=== PATIENT | female | born 1945 | race Hispanic/Latino ===

== ENCOUNTER 2018-11-25 06:47 | Observation (INO) | payer OTHER ==
[2018-11-25 06:48] VITALS: BMI 23.3
--- NOTE | 2018-11-25 07:39 | ED PDOC ---
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 As per son, this started 1 month ago as a small bruise on left knee which progressively gotten worse with associated swelling, discoloration and pain with ambulation. Patient was seen by PMD, Doppler on 10/24: negative for an y acute changes and patient was started on Ciprofloxine 500mg BID a week ago. Patient doesnt recall any trauma but reports she is not as physically active as before and doesnt really ambulate much. Patient denies any fever, chills, SOB, chest pain or dizziness. 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 Huff PSH: IVC filter 2007 Allg: PNC and Aspirin SH: Denies alcohol, smoking or drug use FH: Denies any bleeding disorders ROS: As per HPI, <Dinah Martinez - Last Filed: 11/25/18 11:02> <Damion Hollingsworth - Last Filed: 11/25/18 11:33> Time Seen by Provider: 11/25/18 07:16 Chief Complaint (Nursing): Lower Extremity Problem/Injury Supervising Attending Note - Supervising Attending Note The Documented history was done by the: Physician Slackman The documented physical exam was done by the: Physician Slackman The documented procedures were done by the: Physician Slackman - Attestation: I have personally seen and examined this patient.: Yes I have fully participated in the care of the patient.: Yes I have reviewed all pertinent clinical information, including history, physical exam and plan: Yes - Notes: Notes:: 1130: Stable. Spoke with Dr. Huff. Will admit obs. Wants surgery afternoon nanny to consult. Pulses intact 2+. No sensory or motor deficits. <Damion Hollingsworth - Last Filed: 11/25/18 11:33> Past Medical History Vital Signs: Last Vital Signs Temp 97.3 F L 11/25/18 07:08 Pulse 93 H 11/25/18 07:08 Resp 18 11/25/18 07:08 BP 118/73 11/25/18 07:08 Pulse Ox 99 01/18/19 07:08 - Medical History PMH: Anxiety, Arthritis, Colonic Polyps, Deep Vein Thrombosis, Gastritis, HTN, Hyperthyroidism, Chronic Kidney Disease (solitary kidney) Denies: Pulmonary Embolism - Surgical History Surgical History: Endoscopy - Immunization History Hx Tetanus Toxoid Vaccination: No Hx Influenza Vaccination: No Hx Pneumococcal Vaccination: No <Dinah Martinez - Last Filed: 11/25/18 11:02> Reviewed: Nursing Documentation, Vital Signs Vital Signs: Last Vital Signs Temp 97.3 F L 11/25/18 07:08 Pulse 93 H 11/25/18 07:08 Resp 18 11/25/18 07:08 BP 118/73 11/25/18 07:08 Pulse Ox 99 11/25/18 11:07 - Family History Family History: States: Unknown Family Hx <HollingsworthDamion Gaivn - Last Filed: 11/25/18 11:33> - Home Medications Home Medications: Ambulatory Orders Medication Instructions Recorded Warfarin [Coumadin] 2.5 mg PO DAILY 10/16/14 diaZEpam [Valium] 5 mg PO DAILY 10/16/14 amLODIPine [Norvasc] 2.5 mg PO DAILY 01/02/15 Levothyroxine Sodium 50 mcg PO DAILY 09/20/18 [Levothyroxine] Azelastine HCl 1 drop EACHEYE Q12 11/25/18 Ciprofloxacin [Cipro] 500 mg PO BID 11/25/18 Omeprazole 40 mg PO DAILY 11/25/18 Timolol 0.5% Ophth [Timoptic 0.5% 1 drop BOTHEYES Q12 11/25/18 Ophth Soln] - Allergies Allergies/Adverse Reactions: Allergies Allergy/AdvReac Type Severity Reaction Status Date / Time aspirin Allergy RASH Verified 11/25/18 07:08 Penicillins Allergy RASH Verified 11/25/18 07:08 Review of Systems Constitutional: Negative for: Fever, Chills Cardiovascular: Negative for: Chest Pain, Palpitations Respiratory: Negative for: Cough, Shortness of Breath, Hemoptysis Gastrointestinal: Negative for: Nausea, Vomiting, Abdominal Pain Musculoskeletal: Positive for: Other (knee pain) Skin: Negative for: Rash Neurological: Negative for: Weakness, Numbness <Dinah Martinez - Last Filed: 11/25/18 11:02> Physical Exam - Physical Exam Appears: Positive for: No Acute Distress Eye Exam: Positive for: Normal appearance, EOMI ENT: Positive for: Normal ENT Inspection Neck: Positive for: Normal Cardiovascular/Chest: Positive for: Regular Rate, Rhythm. Negative for: JVD Respiratory: Positive for: Normal Breath Sounds. Negative for: Decreased Breath Sounds, Accessory Muscle Use, Crackles Pulses-Dorsalis Pedis (L): 2+ Pulses-Dorsalis Pedis (R): 2+ Pulses-Femoral (L): 2+ Pulses-Femoral (R): 2+ Pulses-Post. Tibialis (L): 2+ Pulses-Post. Tibialis (R): 2+ Gastrointestinal/Abdominal: Positive for: Normal Exam, Soft. Negative for: Tenderness Back: Positive for: Normal Inspection. Negative for: L CVA Tenderness, R CVA Tenderness Extremity: Positive for: Tenderness (left knee. jennifer sign negative, ROM intact on left ), Calf Tenderness (left ), Capillary Refill (normal), Swelling (+1 around left knee with blue/purple/blackskin discoloration at [place]ro-[place] and posterior L knee (Big hamartoma covering knee)), Other (Pain with only ambulation ) Neurologic/Psych: Positive for: Alert, Oriented <Dinah Martinez - Last Filed: 11/25/18 11:02> - Physical Exam Respiratory: Positive for: Normal Breath Sounds Extremity: Positive for: Tenderness (L calf) <Damion Hollingsworth - Last Filed: 11/25/18 11:33> - Laboratory Results Result Diagrams: 11/25/18 08:15 11/25/18 08:15 - ECG O2 Sat by Pulse Oximetry: 99 - Progress ED Course And Treament: A/P: 73 y/o F with PMH of HTN, CKD, anxiety, 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 - CBC, CMP, Coag - Type and screen - Trop and EKG - NS IVF - EKG - Left LE CT with Cont - Reevaluate patient Case discussed with Dr. Hollingsworth - EKG reviewed, no changes from prior EKG <Dinah Martinez - Last Filed: 11/25/18 11:02> - Laboratory Results Result Diagrams: 11/25/18 08:15 11/25/18 08:15 Lab Results: PT 15.7 Seconds (9.8-13.1) H 11/25/18 08:15 INR 1.4 11/25/18 08:15 APTT 31.3 Seconds (25.6-37.1) 11/25/18 08:15 Troponin I < 0.0120 ng/mL (0.00-0.120) 11/25/18 08:15 Total Bilirubin 0.6 mg/dl (0.2-1.3) 11/25/18 08:15 AST 25 U/L (14-36) 11/25/18 08:15 ALT 24 U/L (9-52) 11/25/18 08:15 Alkaline Phosphatase 57 U/L (38-126) 11/25/18 08:15 Total Protein 6.6 G/DL (6.3-8.2) 11/25/18 08:15 Albumin 3.5 g/dL (3.5-5.0) 11/25/18 08:15 Globulin 3.0 gm/dL (2.2-3.9) 11/25/18 08:15 Albumin/Globulin Ratio 1.2 (1.0-2.1) 11/25/18 08:15 - ECG Pulse Ox Interpretation: Normal <Damion Hollingsworth - Last Filed: 11/25/18 11:33> Disposition <Dinah Martinez - Last Filed: 11/25/18 11:02> - Patient ED Disposition Is Patient to be Admitted: Yes Counseled Patient/Family Regarding: Studies Performed, Diagnosis - Disposition Disposition Time: 11:32 - Pt Status Changed To: Hospital Disposition Of: Observation - POA Present On Arrival: Falls Or Trauma (possible) <Damion Hollingsworth - Last Filed: 11/25/18 11:33> - Clinical Impression Clinical Impression: Abnormal bruising, Anemia - Disposition Condition: FAIR
[2018-11-25] MEDS ORDERED: Sodium Chloride 0.9% 500 ML IV STA (08:03)
[2018-11-25 08:59] LABS: INR 1.4; PROTHROMBIN TIME 15.7 Seconds (9.8-13.1)
[2018-11-25 09:02] LABS: ALB/GLOB RATIO 1.2 (1.0-2.1); ALBUMIN 3.5 g/dL (3.5-5.0); ALT/SGPT 24 U/L (9-52); AST/SGOT 25 U/L (14-36); BLOOD UREA NITROGEN 54 mg/dl (7-17); CALCIUM 8.7 mg/dL (8.4-10.2); GFR NON-AFRICAN AMERICAN 17; PARTIAL THROMBOPLASTIN TIME 31.3 Seconds (25.6-37.1)
[2018-11-25 09:07] LABS: BASO % 0.7 % (0.0-2.0); EOS # 0.1 K/uL (0.0-0.7); EOS % 3.3 % (0.0-4.0); HEMOGLOBIN 8.3 g/dL (12.0-16.0); LYMPH # 0.7 K/uL (1.0-4.3); MEAN CELL VOLUME 92.1 fl (81.0-99.0); MEAN CORPUSCULAR HEMOGLOBIN 29.7 pg (27.0-31.0); MEAN CORPUSCULAR HGB CONC 32.2 g/dL (33.0-37.0); MONO # 0.3 K/uL (0.0-0.8); MONO % 6.4 % (0.0-10.0); NEUT # 3.1 K/uL (1.8-7.0); NEUT % 72.6 % (50.0-75.0); RBC 2.8 Mil/uL (3.80-5.20); RED CELL DISTRIBUTION WIDTH 13.4 % (11.5-14.5); WHITE BLOOD COUNT 4.2 K/uL (4.8-10.8)
--- NOTE | 2018-11-25 10:43 | CT ---
Date of service: 11/25/2018 PROCEDURE: CT left lower extremity HISTORY: pain knee and lower leg with hematoma COMPARISON: Not available TECHNIQUE: 2.5 mm contiguous axial sections were acquired through the left lower extremity. Sagittal and coronal images were reformatted from the axial scan. No intravenous contrast material was administered for this examination. Total exam DLP: 428.11 mGy-cm. This CT exam was performed using 1 or more of the following dose reduction techniques: Automated exposure control, adjustment of the mA and/or kV according to patient size, and/or use of iterative reconstruction technique. FINDINGS: There is no acute fracture. The joint spaces and articular surfaces are grossly preserved. No articular erosions are appreciated. There is no joint effusion. There is no evidence of hemarthrosis. There is no lytic or blastic osseous lesion. There is focal cutaneous thickening seen over the medial aspect of the proximal tibia with heterogeneous increased attenuation of the subcutaneous soft tissues likely reflecting ecchymosis. Rule out cellulitis. Correlate clinically. No evidence of yaniv hematoma. No evidence of intramuscular hematoma or compartment syndrome. IMPRESSION: Probable traumatic ecchymosis over medial aspect of proximal tibia without evidence of yaniv hematoma. No osseous abnormality. No additional abnormality identified.
[2018-11-25] MEDS ORDERED: Ciprofloxacin 400mg/200ml D5W 400 MG/200 ML BAG IVPB SCH (12:00)
[2018-11-25] MEDS ORDERED: Ciprofloxacin 400mg/200ml D5W 0 MG/0 ML BAG IVPB ONE (12:02)
[2018-11-25] MEDS: Ciprofloxacin 200mg/100ml D5W 100 ML IVPB SCH ×2 (12:29→22:06)
--- NOTE | 2018-11-25 14:23 | CP.PCM.CON ---
History of Present Illness - History of Present Illness History of Present Illness: 73F with PMHx of HTN, CKD, anxiety, left lower leg DVT on coumadin, presents to [facility] ED with complaints of left lower leg ecchymosis. As per patient's son who is at bedside mother had developed a small ecchymotic lesion over the patella approximately 3 weeks ago. As per son skin discoloration kept progressing at which point patient's PMD referred her to ED. Patient doesn't recall any traumatic event to the limb. At time of examination she denied headache/dizziness, chest pain/SOB, nausea/vomiting. Reports some discomfort in left lower leg. However, patient is able to actively flex and extend at the knee joint. 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) Hx Cataracts: Yes (RIGHT EYE WITH LENS PLACED) - RENAL Hx Chronic Kidney Disease: Yes (solitary kidney) - ENDOCRINE/METABOLIC Hx Hyperthyroidism: Yes - HEMATOLOGICAL/ONCOLOGICAL Hx Blood Disorders: No Other/Comment: BILATERAL LRGS WITH TONY BANDAGE - INTEGUMENTARY Hx Dermatological Problems: No - MUSCULOSKELETAL/RHEUMATOLOGICAL Hx Arthritis: Yes - GASTROINTESTINAL Hx Gastritis: Yes - GENITOURINARY/GYNECOLOGICAL Hx Genitourinary Disorders: Yes ("ONLY 1 KIDNEY FUNCTIONG AND ONLY AT 25%") - PSYCHIATRIC Hx Anxiety: Yes - SURGICAL HISTORY Hx Surgeries: Yes (STENT IN LEFT GROIN; UMBRELLA IN RIGHT GROIN) Hx Cataract Extraction: Yes (RIGHT EYE ) - ANESTHESIA Hx Anesthesia: Yes Hx Anesthesia Reactions: No Hx Malignant Hyperthermia: No Meds Allergies/Adverse Reactions: Allergies Allergy/AdvReac Type Severity Reaction Status Date / Time aspirin Allergy RASH Verified 11/25/18 07:08 Penicillins Allergy RASH Verified 11/25/18 07:08 - Medications Medications: Current Medications Acetaminophen (Tylenol 325mg Tab) 650 mg PO Q4 PRN PRN Reason: Pain, moderate (4-7) Amlodipine Besylate (Norvasc) 2.5 mg PO DAILY [facility] Diazepam (Valium) 5 mg PO DAILY [facility] Last Admin: 11/25/18 12:29 Dose: 5 mg Ciprofloxacin (Cipro 200mg/100ml D5w) 100 mls @ 100 mls/hr IVPB Q12 [facility]; Protocol Last Admin: 11/25/18 12:29 Dose: 100 mls/hr Levothyroxine Sodium (Synthroid) 50 mcg PO DAILY@0630 [facility] Timolol Maleate (Timoptic 0.5% Ophth Soln) 1 drop OD Q12 [facility] Results - Vital Signs Recent Vital Signs: Last Vital Signs Temp 97.7 F 11/25/18 13:47 Pulse 78 11/25/18 13:47 Resp 18 11/25/18 13:47 BP 123/76 11/25/18 13:47 Pulse Ox 96 11/25/18 13:47 - Labs Result Diagrams: 11/25/18 08:15 11/25/18 08:15 Labs: Laboratory Results - last 24 hr 11/25/18 11/25/18 11/25/18 08:15 08:15 08:15 WBC 4.2 L RBC 2.80 L Hgb 8.3 L Hct 25.8 L MCV 92.1 MCH 29.7 MCHC 32.2 L RDW 13.4 Plt Count 191 MPV 8.0 Neut % (Auto) 72.6 Lymph % (Auto) 17.[address] [facility] % (Auto) 6.4 Eos % (Auto) 3.3 Baso % (Auto) 0.7 Neut # (Auto) 3.1 Lymph # (Auto) 0.[address] [facility] # (Auto) 0.3 Eos # (Auto) 0.1 Baso # (Auto) 0.0 PT INR APTT Sodium 140 Potassium 4.7 Chloride 112 H Carbon Dioxide 21 L Anion Gap 12 BUN 54 H Creatinine 2.8 H Est GFR ( Amer) 20 Est GFR (Non-Af Amer) 17 Random Glucose 97 Calcium 8.7 Total Bilirubin 0.6 AST 25 ALT 24 Alkaline Phosphatase 57 Troponin I < 0.0120 Total Protein 6.6 Albumin 3.5 Globulin 3.0 Albumin/Globulin Ratio 1.2 Blood Type A POSITIVE Blood Type Confirm Antibody Screen Negative BBK History Checked No verified bt 11/25/18 11/25/18 08:15 09:40 WBC RBC Hgb Hct MCV MCH MCHC RDW Plt Count MPV Neut % (Auto) Lymph % (Auto) [facility] % (Auto) Eos % (Auto) Baso % (Auto) Neut # (Auto) Lymph # (Auto) [facility] # (Auto) Eos # (Auto) Baso # (Auto) PT 15.7 H INR 1.4 APTT 31.3 Sodium Potassium Chloride Carbon Dioxide Anion Gap BUN Creatinine Est GFR ( Amer) Est GFR (Non-Af Amer) Random Glucose Calcium Total Bilirubin AST ALT Alkaline Phosphatase Troponin I Total Protein Albumin Globulin Albumin/Globulin Ratio Blood Type Blood Type Confirm A POSITIVE Antibody Screen BBK History Checked Assessment & Plan - Assessment and Plan (Free Text) Assessment: 73F with left lower leg ecchymosis Plan: No acute surgical intervention needed at this present time Conservative management Keep limb elevated Will follow D/w Dr. Jenny Venegas PGY3
--- NOTE | 2018-11-25 20:37 | CARD ---
APPROVED REPORT Date of service: 11/25/2018 EKG Measurement Heart [id number] ID [id number] <Conclusion> Normal sinus rhythm Possible Inferior-posterior infarct, age undetermined T wave abnormality, consider dorene-lateral ischemia Abnormal ECG
--- NOTE | 2018-11-25 23:19 | HP ---
ADMITTING HISTORY AND PHYSICAL HISTORY OF PRESENT ILLNESS: Ms. Laguerre is a 73-year-old female who was admitted via the emergency room because of pain and swelling of the left lower extremity for the past one week prior to admission. She has a history of deep venous thrombosis of the left lower extremity, status post IVC filter placement in 2007 and has severe peripheral vascular disease bilaterally and has been on Coumadin therapy for the past several years, but Coumadin was held recently because of ecchymotic patches of skin. She indicated that she had been applying some cream to her lower extremities (hot balm). The skin started to change color and became darker and appeared to have ecchymotic patches. She was seen in the office and had her Coumadin stopped and referred for CT scan of the leg to rule out hematoma but was not able to have that test done and was brought to the emergency room by her son three days later for workup because the left lower extremity looked more bruised. PAST MEDICAL HISTORY: She also has a past medical history of hypertension, chronic kidney disease. FAMILY HISTORY: Noncontributory. SOCIAL HISTORY: She does not smoke or drink and lives at home with her children. REVIEW OF SYSTEMS: Essentially unremarkable. PHYSICAL EXAMINATION: GENERAL: The patient is alert and oriented, appears to be presently comfortable. VITAL SIGNS: Blood pressure of 118/73 with a pulse of 93, respiratory rate 18. She is febrile. O2 sat 99% on room air. HEENT: Mouth shows fair hygiene. NECK: JVP flat. LUNGS: Clear. HEART: Regular. No murmurs or gallop. ABDOMEN: Soft, nontender. No organomegaly. EXTREMITIES: There is a skin discoloration with ecchymosis of left lower extremity in the thigh area all the way to the knee. Some of the ecchymotic patches are beginning to heal and had some brownish discoloration. There is swelling of left lower extremity when compared to the right lower extremity, but no appreciable tenderness compared to when the patient was seen in the office a few days ago. The swelling appears to be diminishing. CENTRAL NERVOUS SYSTEM: Grossly intact. GENITAL: Deferred. RECTAL: Deferred. LABORATORY DATA: Remarkable for PT 15.7, INR 1.4. Sodium 140, potassium 4.7, BUN 54, creatinine 2.8, this is unchanged from prior blood work. Troponin less than 0.012. WBC 4.2, hemoglobin 8.3, platelet count 191,000. CAT scan of left lower extremity is remarkable for traumatic ecchymosis over the medial aspect of proximal tibia without evidence of yaniv hematoma. No osseous abnormality. IMPRESSION: Traumatic ecchymosis of left lower extremity, probably secondary to topical analgesics the patient used. No evidence of yaniv bleeding anywhere else. Hypertension, fairly controlled. History of severe peripheral vascular disease for which the patient has been on Coumadin for years. History of chronic kidney disease. PLAN: Monitor the patient in telemetry. Repeat CBC. Monitor hemoglobin in the morning. IV antibiotic empirically to treat for cellulitis of lower extremity. The patient will be seen by the surgical team and if clinically cleared, we will probably discharge in a.m. with oral antibiotics and follow up as an outpatient. We will elevate the leg with a pillow for now. The son is advised to bring the patient back to the emergency room if symptoms worsen or persist. Brandan Huff MD MTDD
[2018-11-26 00:39] VITALS: PULSE 74
[2018-11-26] MEDS ORDERED: Levothyroxine 50 MCG TAB PO SCH (06:30)
[2018-11-26 08:10] VITALS: BP 114/68; RESP 20; TEMP 98.1; O2SAT 96
--- NOTE | 2018-11-26 08:35 | CP.PCM.PN ---
Subjective - Date & Time of Evaluation Date of Evaluation: 11/26/18 Time of Evaluation: 05:55 - Subjective Subjective: PAtient seen and examined. No acute events over night. Left lower limb appears the same. Patient with good active motion at knee joint. No complaints. Objective - Vital Signs/Intake and Output Vital Signs (last 24 hours): Temp Pulse Resp BP Pulse Ox 98.1 F 74 20 114/68 96 11/26/18 08:09 11/26/18 08:09 11/26/18 08:09 11/26/18 08:09 11/26/18 08:09 - Medications Medications: Current Medications Acetaminophen (Tylenol 325mg Tab) 650 mg PO Q4 PRN PRN Reason: Pain, moderate (4-7) Amlodipine Besylate (Norvasc) 2.5 mg PO DAILY [facility] Diazepam (Valium) 5 mg PO DAILY [facility] Last Admin: 11/25/18 12:29 Dose: 5 mg Ciprofloxacin (Cipro 200mg/100ml D5w) 100 mls @ 100 mls/hr IVPB Q12 [facility]; Protocol Last Admin: 11/25/18 22:06 Dose: 100 mls/hr Levothyroxine Sodium (Synthroid) 50 mcg PO DAILY@0630 [facility] Last Admin: 11/26/18 06:28 Dose: 50 mcg Timolol Maleate (Timoptic 0.5% Oph Soln) 1 drop OD Q12 [facility] Last Admin: 11/25/18 22:14 Dose: 1 drop - Labs Labs: 11/25/18 08:15 11/25/18 08:15 PT 15.7 Seconds (9.8-13.1) H 11/25/18 08:15 INR 1.4 11/25/18 08:15 APTT 31.3 Seconds (25.6-37.1) 11/25/18 08:15 - Constitutional Appears: No Acute Distress - Head Exam Head Exam: NORMOCEPHALIC - Eye Exam Eye Exam: EOMI, Normal appearance - ENT Exam ENT Exam: Mucous Membranes Moist - Respiratory Exam Respiratory Exam: NORMAL BREATHING PATTERN - Cardiovascular Exam Cardiovascular Exam: +S1, +S2 - GI/Abdominal Exam GI & Abdominal Exam: Soft - Extremities Exam Additional comments: Generalized ecchymosis over left lower extremity Leg is warm Good active motion in major joints - Neurological Exam Neurological Exam: Alert, Awake, Oriented x3 Assessment and Plan - Assessment and Plan (Free Text) Assessment: 73F with left lower leg ecchymosis Plan: No change No acute surgical intervention needed at this present time Conservative management Keep limb elevated D/w Dr. Jenny Venegas PGY3
--- NOTE | 2018-11-26 09:06 | CP.PCM.DIS ---
Provider - Provider Date of Admission: 11/25/18 11:27 Attending physician: Brandan Huff MD Consults: 11/25/18 11:34 General Surgery Consult Stat Comment: Consulting Provider: Heri Alvarado Consulting Physician: Heri Alvarado Reason for Consult: echymosis Time Spent in preparation of Discharge (in minutes): 30 Diagnosis - Discharge Diagnosis (1) Hypothyroidism Status: Acute (2) Peripheral vascular disease Status: Acute (3) Abnormal bruising Status: Acute Comment: edema and bruising improved (4) Anemia Status: Acute Comment: stable (5) Anxiety Status: Acute (6) Renal failure Status: Acute Hospital Course - Lab Results Lab Results: Most Recent Lab Values WBC 4.2 K/uL (4.8-10.8) L 11/25/18 08:15 RBC 2.80 Mil/uL (3.80-5.20) L 11/25/18 08:15 Hgb 8.3 g/dL (12.0-16.0) L 11/25/18 08:15 Hct 25.8 % (34.0-47.0) L 11/25/18 08:15 MCV 92.1 fl (81.0-99.0) 11/25/18 08:15 MCH 29.7 pg (27.0-31.0) 11/25/18 08:15 MCHC 32.2 g/dL (33.0-37.0) L 11/25/18 08:15 RDW 13.4 % (11.5-14.5) 11/25/18 08:15 Plt Count 191 K/uL (130-400) 11/25/18 08:15 MPV 8.0 fl (7.2-11.7) 11/25/18 08:15 Neut % (Auto) 72.6 % (50.0-75.0) 11/25/18 08:15 Lymph % (Auto) 17.0 % (20.0-40.0) L 11/25/18 08:15 [place] % (Auto) 6.4 % (0.0-10.0) 11/25/18 08:15 Eos % (Auto) 3.3 % (0.0-4.0) 11/25/18 08:15 Baso % (Auto) 0.7 % (0.0-2.0) 11/25/18 08:15 Neut # (Auto) 3.1 K/uL (1.8-7.0) 11/25/18 08:15 Lymph # (Auto) 0.7 K/uL (1.0-4.3) L 11/25/18 08:15 [place] # (Auto) 0.3 K/uL (0.0-0.8) 11/25/18 08:15 Eos # (Auto) 0.1 K/uL (0.0-0.7) 11/25/18 08:15 Baso # (Auto) 0.0 K/uL (0.0-0.2) 11/25/18 08:15 PT 15.7 Seconds (9.8-13.1) H 11/25/18 08:15 INR 1.4 11/25/18 08:15 APTT 31.3 Seconds (25.6-37.1) 11/25/18 08:15 Sodium 140 mmol/l (132-148) 11/25/18 08:15 Potassium 4.7 MMOL/L (3.6-5.0) 11/25/18 08:15 Chloride 112 mmol/L (98-107) H 11/25/18 08:15 Carbon Dioxide 21 mmol/L (22-30) L 11/25/18 08:15 Anion Gap 12 (10-20) 11/25/18 08:15 BUN 54 mg/dl (7-17) H 11/25/18 08:15 Creatinine 2.8 mg/dl (0.7-1.2) H 11/25/18 08:15 Est GFR ( Amer) 20 11/25/18 08:15 Est GFR (Non-Af Amer) 17 11/25/18 08:15 Random Glucose 97 mg/dL (65-105) 11/25/18 08:15 Calcium 8.7 mg/dL (8.4-10.2) 11/25/18 08:15 Total Bilirubin 0.6 mg/dl (0.2-1.3) 11/25/18 08:15 AST 25 U/L (14-36) 11/25/18 08:15 ALT 24 U/L (9-52) 11/25/18 08:15 Alkaline Phosphatase 57 U/L (38-126) 11/25/18 08:15 Troponin I < 0.0120 ng/mL (0.00-0.120) 11/25/18 08:15 Total Protein 6.6 G/DL (6.3-8.2) 11/25/18 08:15 Albumin 3.5 g/dL (3.5-5.0) 11/25/18 08:15 Globulin 3.0 gm/dL (2.2-3.9) 11/25/18 08:15 Albumin/Globulin Ratio 1.2 (1.0-2.1) 11/25/18 08:15 Blood Type A POSITIVE 11/25/18 08:15 Blood Type Confirm A POSITIVE 11/25/18 09:40 Antibody Screen Negative 11/25/18 08:15 BBK History Checked No verified bt 11/25/18 08:15 Discharge Exam - Head Exam Head Exam: NORMOCEPHALIC - Eye Exam Eye Exam: EOMI, Normal appearance, PERRL Pupil Exam: NORMAL ACCOMODATION, PERRL - GI/Abdominal Exam GI & Abdominal Exam: Normal Bowel Sounds - Rectal Exam Rectal Exam: NORMAL INSPECTION - Extremities Exam Extremities exam: pedal edema - Neurological Exam Neurological exam: Alert, CN II-XII Intact, Normal Gait, Oriented x3, Reflexes Normal - Psychiatric Exam Psychiatric exam: Normal Affect, Normal Mood - Skin Skin Exam: Dry, Intact, Warm Additional comments: ecchymosis l leg--improved Discharge Plan - Follow Up Plan Condition: FAIR Disposition: HOME/ ROUTINE Additional Instructions: discharge today on po cipro hold coumadin for 1 more week
[2018-11-26] MEDS: Ciprofloxacin 200mg/100ml D5W 100 ML IVPB SCH (09:25)
== END 2018-11-26 11:32 | disposition home or self-care (01) ==
LOC: H.ER 06:47 → H.ERHOLD 11:27 → H.MEDSURG1 14:03
PROVIDERS: ADMIT Internal Medicine Pulmonary Disease; ATTEND Internal Medicine Pulmonary Disease
DX: R23.3 Spontaneous ecchymoses (principal); R60.9 Edema, unspecified; E03.9 Hypothyroidism, unspecified; F41.9 Anxiety disorder, unspecified; Z88.6 Allergy status to analgesic agent; Z88.0 Allergy status to penicillin; I12.9 Hypertensive chronic kidney disease with stage 1 through stage 4 chronic kidney disease, or unspecified chronic kidney disease; N18.9 Chronic kidney disease, unspecified; Z79.01 Long term (current) use of anticoagulants; Z79.890 Hormone replacement therapy; I73.9 Peripheral vascular disease, unspecified; Z86.718 Personal history of other venous thrombosis and embolism; K29.70 Gastritis, unspecified, without bleeding; M19.90 Unspecified osteoarthritis, unspecified site; D64.9 Anemia, unspecified
CPT/HCPCS: 73700; 80053; 84484; 85025; 85610; 85730; 86850; 86900; 87040; 93005; 96361; 96365; 96366; 96375; 99285; G0378; J0744; J7040